=== PATIENT | male | born 1965 | race Caucasian/White ===

== ENCOUNTER 2019-02-23 22:32 | Inpatient (IN) | payer MEDICAID ==
[~2019-02-23] VITALS: Ht 182.9 cm; Wt 124.4 kg
[2019-02-23 22:39] VITALS: Ht 182.9 cm; Wt 124.4 kg
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
--- NOTE | 2019-02-23 22:51 | NUR ---
PER MEDIC BG 153.
[2019-02-23 23:36] LABS: BASOPHIL % 0.7 % (0-2)
[2019-02-23 23:46] LABS: CALCIUM 8.2 mg/dL (8.5-10.1); CARBON DIOXIDE 21.5 mmol/L (21-32); CHLORIDE SERUM 97 mmol/L (98-107); CREATININE SERUM 0.8 mg/dL (0.7-1.3); GFR1 > 60 mL/min; GLUCOSE SERUM 140 mg/dL (74-106); SODIUM SERUM 135 mmol/L (136-145)
[2019-02-23 23:51] LABS: ALKALINE PHOSPHATASE 194 U/L (46-116); ALT/SGPT 77 U/L (16-63); AST/SGOT 283 U/L (15-37); BILIRUBIN TOTAL 3.3 mg/dL (0.20-1.00); CHOLESTEROL 182 mg/dL (<200); CHOLESTEROL/HDL RATIO 3.5; HDL CHOLESTEROL 52 mg/dL (40-60); LIPASE 242 IU/L (73-393); TOTAL PROTEIN, SERUM 7.1 g/dL (6.4-8.2); TRIGLYCERIDES 167 mg/dL (<150)
[2019-02-23 23:52] LABS: PLATELET COUNT 89 x10^3mcL (130-400); RED CELL DISTRIBUTION WIDTH 16.2 % (11.5-14.5)
[2019-02-23 23:58] LABS: FREE T4 1.06 ng/dL (0.76-1.46); FREE THYROXINE INDEX 2.4 ug/dL (1.4-4.5); T3 TOTAL 1.02 ng/mL; T4(THYROXINE) 6.6 ug/dL (4.7-13.3)
--- NOTE | 2019-02-24 00:05 | NUR ---
PT GIVEN 1 NITRO FOR CHEST PRESSURE. PT STS THAT HE IS STILL FEELING ANXIIOUS. DR. FONSECA INFORMED. VSS. RESP E/U. WILL CONTINUE TO MONITOR.
--- NOTE | 2019-02-24 00:44 | NUR ---
PER DR DAVIDSON, ADMINISTER 3RD DOSE OF NITROGLYCERIN SL. PT ON FULL CM, AOX4, RESP EVEN AND UNLABORED, NO ACUTE DISTRESS NOTED.
[2019-02-24 01:32] LABS: MAGNESIUM 1.5 mg/dL (1.8-2.4)
--- NOTE | 2019-02-24 01:36 | NUR ---
REPORT GIVEN TO ADOLPH TO ASSUME CARE OF PT.
[2019-02-24] MEDS ORDERED: AMLODIPINE BES2.5 M1 PO (01:39)
[2019-02-24] MEDS ORDERED: PRAZOSIN HYDROCH1 MG PO (01:39)
[2019-02-24] MEDS ORDERED: GABAPENTIN100 M2 PO (01:39)
[2019-02-24] MEDS ORDERED: FLUOXETINE40 MG PO (01:39)
[2019-02-24] MEDS ORDERED: LITHIUM CARBON300 MG PO (01:39)
--- NOTE | 2019-02-24 02:10 | NUR ---
PT ARRIVED ON THE FLOOR FROM ER VIA [facility] ACCOMPANIED BY NURSE. PT IS ADMITTED W/ C/O CHEST PAIN. HE IS ALERT,ORIENTED X4 W/ CLEAR SPEECH. PT STATED HE HAS CHEST PAIN AT 7/10 BUT NON-RADIATING AT THIS TIME. LUNGS CTA. NO SOB ON ROOM AIR AND SATTING 96%. BOWEL SOUNDS ACTIVE. NO C/O ABDL DISCOMFORT AT THIS TIME. PT DENIES DYSURIA. W/ HL TO RT AND LT HANDS. PT ORIENTED TO ROOM AND INSTRUCTTED ON THE USE OF CALL LIGHT.
--- NOTE | 2019-02-24 02:30 | NUR ---
IV TO RT HAND REMOVED (NOT PATENT).
--- NOTE | 2019-02-24 02:34 | NUR ---
PT MEDICATED W/ MORPHINE SULFATE 2 MG IV FOR C/O CHEST PAIN AND W/ ATIVAN 1 MG PO FOR ANXIETY.
[2019-02-24 02:56] VITALS: BP 114/75
[2019-02-24 04:06] LABS: UA SPECIFIC GRAVITY <=1.005 (1.005-1.035); microscopic required? YES; urine erythrocyte NEGATIVE (NEGATIVE)
[2019-02-24 04:12] LABS: AMPHETAMINE QUAL UR NONE DETECTED (See below)
--- NOTE | 2019-02-24 05:18 | NUR ---
PT C/O CHEST PAIN 04/28. NORCO 5/325 MG PO GIVEN.
[2019-02-24 05:45] VITALS: BP 103/63
--- NOTE | 2019-02-24 06:31 | NUR ---
U/S ABDOMEN IN PROGRESS.
--- NOTE | 2019-02-24 06:31 | NUR ---
PT SLEPT FAIRLY. HE WAS MEDICATED FOR C/O CHEST PAIN X2 AND FOR ANXIETY X1. NO RESP. DISTRESS NOTED. HL TO LT HAND INTACT AND PATENT. ALL NEEDS ATTENDED TO.
--- NOTE | 2019-02-24 06:48 | NUR ---
INFORMED DR. MAGUIRE REGARDING MG LEVEL OF 1.5 AND RESULT OF URINALYSIS.
--- NOTE | 2019-02-24 07:15 | NUR ---
PT IS AAOXR. TELE [address] READING NSR. PT DENIES CHEST PAIN AND PRESSURE. LUNG SOUNDS CTA, ON R/A. NO COUGH OR SOB NOTED. ABDOMEN SOFT, ROUND, NONTENDER, NONDISTENDED. BOWEL SOUNDS ACTIVE. SKIN CDI. NO EDEMA NOTED. PERIPHERAL PULSES PALPABLE. IV CATH TO N/S LOCKED, SITE WNL. CALL LIGHT WITHIN REACH. BED IN LOWEST POSTION.
--- NOTE | 2019-02-24 07:20 | NUR ---
U/S OF ABDOMEN IN PROGRESS AT THIS TIME.
--- NOTE | 2019-02-24 07:41 | NUR ---
PT HR TRENDING AT 133-140 BMP SINCE 729. REPORTED TO DR. MAGUIRE. STATED LOPRESSOR WILL BE GIVEN. NO NEW ORDERS AT THIS TIME. PT STATES HE FEELS HIS HR IS UP. PT ENCOURAGED TO LAY FLAT AND DECREASE ACTIVITY. CALL LIGHT WITHIN REACH.
--- NOTE | 2019-02-24 08:16 | NUR ---
ROUTINE LOPRESSOR 12.5 MG PO GIVEN FOR HR 130BPM. VS: B/P 115/71 (81), HR PRESENTLY 101BPM. PT STATES HE IS FEELING ANXIOUS, ATIVAN WILL BE GIVEN. PT EDUCATED TO REPORT CHEST PAIN. NO S/S OF CHEST PAIN AT THIS TIME.
--- NOTE | 2019-02-24 08:37 | NUR ---
ATIVAN 1 MG PO GIVEN FOR ANXIETY. PT TAUGHT TO REPORT PAIN WHEN IT OCCURS. PT VERBALIZED UNDERSTANDING. CALL LIGHT WITHIN REACH.
[2019-02-24 09:49] VITALS: BP 116/72
--- NOTE | 2019-02-24 11:50 | NUR ---
PT IS IN BED WATCHING TV. RESP EVEN AND UNLABORED. PT FEELS LESS ANXIOUS AND DENIES PAIN AT THIS TIME. NO DISTRESS NOTED. CALL LIGHT WITHIN REACH.
--- NOTE | 2019-02-24 12:46 | NUR ---
PT IS SLEEPING BUT EASILY AROUSABLE. RESP EVEN AND UNLABORED. NO DISTRESS NOTED. CALL LIGHT WITHIN REACH.
[2019-02-24 13:15] VITALS: BP 106/61
[2019-02-24 14:38] LABS: CALCIUM 7.7 mg/dL (8.5-10.1); CARBON DIOXIDE 23.5 mmol/L (21-32); CHLORIDE SERUM 100 mmol/L (98-107); CREATININE SERUM 0.7 mg/dL (0.7-1.3); GFR1 > 60 mL/min; GLUCOSE SERUM 92 mg/dL (74-106); POTASSIUM SERUM 3.1 mmol/L (3.5-5.1); SODIUM SERUM 136 mmol/L (136-145)
--- NOTE | 2019-02-24 16:34 | NUR ---
REPORTED TO DR. MAGUIRE PT'S K+ LEVEL = 3.1. RECEIVED ORDER FOR KLOR CON 40MEQ PO X1 NOW. ORDER NOTED AND CARRIED OUT. PT MADE AWARE OF NEW ORDER.
--- NOTE | 2019-02-24 17:17 | NUR ---
KLORCON 40MEQ PO GIVEN OF K+ OF 3.1. RESP EVEN AND UNLABORED. NO SOB OR CHEST PAIN. DENIES DISCOMFORT AT THIS TIME. PT STATES, "I AM FEELING LESS ANXIOUS." CALL LIGHT WITHIN REACH.
[2019-02-24 17:48] VITALS: BP 109/62
--- NOTE | 2019-02-24 18:37 | NUR ---
PT IS AAOX4. RESP EVEN AND UNLABORED. DENIES CHEST PAIN AND PRESSURE. TELE [address] READING NSR. IV CATH NS LOCKED TO , SITE WNL. RECEIVED ORDER FROM DR. BERMEO TO D/C RFS AND NM REST TEST FOR 1030. REORDER TESTS FOR 14OO ON 02/25/19. BED IN LOW POSITION. CALL LIGHT WITHIN REACH. WILL ENDORSE ALL CARE TO NOC RN.
--- NOTE | 2019-02-24 19:10 | NUR ---
RECEIVED REPORT FROM AUGIE ESCOBAR. UPDATES PROVIDED. ALL QUESTIONS ANSWERED AND ADDRESSED. WILL RESUME CARE.
--- NOTE | 2019-02-24 19:12 | NUR ---
RECEIVED PT RESTING BUT AROUSABLE. ALERT AND ORIENTED X4. RESPONDS TO VERBAL, TACTILE, AND PAINFUL STIMULUS. PUPILS 3MM IN SIZE AND BRISK IN RESPONSE BILATERALLY. DENIES HEADACHE. ON ROOM AIR. BREATHING IS EVEN AND UNLABORED. CLEAR LUNG SOUNDS AUSCULTATED ALL THROUGHOUT LOBES. NO SIGNS OF RESP DISTRESS NOTED. STRONG PULSES TO BUE AND BLE. CAP REFILL <3 SEC TO BUE AND BLE. SKIN IS WARM/DRY, COLOR IS CONSISTENT WITH ETHNICITY. TRACE EDEMA TO BLE NOTED. S1/S2 HEART SOUNDS AUDIBLE. DENIES CP AT THIS TIME. SKIN INTACT. ECCHYMOSIS NOTED TO ABDOMEN. NO OPEN WOUNDS NOTED. ABD IS SOFT AND ROUNDED. ACTIVE BOWEL SOUNDS AUSCULTATED TO ALL 4 ABD QUAD. DENIES N/V AND ABD PAIN. X3 SIDE RAILS UP, CALL LIGHT WITHIN REACH, SCD TO BLE, BED IN LOWEST POSITION.
[2019-02-24 20:58] VITALS: BP 109/64
--- NOTE | 2019-02-25 04:10 | NUR ---
PT STATING THAT HE IS NAUSEOUS AND IS REQUESTING FOR MED TO RELIEVE THE SYMPTOMS. MEDICATED PT PER EMAR. WILL CONTINUE TO MONITOR.
[2019-02-25 05:33] VITALS: BP 128/80
[2019-02-25 06:33] LABS: BASOPHIL % 0.7 % (0-2)
[2019-02-25 06:38] LABS: ALKALINE PHOSPHATASE 186 U/L (46-116); ALT/SGPT 66 U/L (16-63); AST/SGOT 234 U/L (15-37); BILIRUBIN TOTAL 4.3 mg/dL (0.20-1.00); CALCIUM 8.5 mg/dL (8.5-10.1); CARBON DIOXIDE 24.7 mmol/L (21-32); CHLORIDE SERUM 100 mmol/L (98-107); CREATININE SERUM 0.6 mg/dL (0.7-1.3); GFR1 > 60 mL/min; GLUCOSE SERUM 120 mg/dL (74-106); POTASSIUM SERUM 3.5 mmol/L (3.5-5.1); SODIUM SERUM 137 mmol/L (136-145); TOTAL PROTEIN, SERUM 6.8 g/dL (6.4-8.2)
--- NOTE | 2019-02-25 06:39 | NUR ---
PT IS AWAKE AND ALERT. STATED WAS ABLE TO SLEEP FOR 3 HOURS. DENIES PAIN. DENIES N/V. BREATHING E/U. NO SIGNS OF RESP DISTRESS NOTED. X3 SIDE RAILS UP, BED IN LOWEST POSITION, CALL LIGHT WITHIN REACH.
[2019-02-25 06:45] LABS: ALBUMIN 2.8 g/dL (3.4-5.0)
[2019-02-25 06:56] LABS: PLATELET COUNT 64 x10^3mcL (130-400); RED CELL DISTRIBUTION WIDTH 15.7 % (11.5-14.5)
--- NOTE | 2019-02-25 07:08 | NUR ---
RECEIVED PATIENT AWAKE/ALERT UP AT SIDE OF BED, DENIES PAIN. RE-INFORCED PATIENT IS OKAY TO HAVE LIGHT BREAKFAST NO CAFFEINE PATIENT VERBALIZE UNDERSTAND. TELE #15 NOTED. IV TO LH INTACT AND SL NOTED. CALL LIGHT IN REACH.
--- NOTE | 2019-02-25 08:34 | NUR ---
PATIENT RESTING IN BED NO C/O CHEST PAIN. ADMINISTERED COLACE AND ASA; HELD METOPROLOL PER DOCTOR ORDERED, PATIENT SCHEDULE STRESS TEST AT 1400. INFORM PATIENT NOT TO EAT AND DRINK UNTIL TEST COMPLETE. PATIENT VERBALIZE UNDERSTAND. NEEDS MET. CALL LIGHT IN REACH.
[2019-02-25 09:50] VITALS: BP 107/57
--- NOTE | 2019-02-25 10:27 | NUR ---
CALL FOR MAGNESIUM LEVEL; LAST LEVEL ON 02/23/19 1.5L WILL BASE ON NEW LEVEL TO REPLACE. PER DR. MAGUIRE IS OKAY TO ADD TO LAB THIS MORNING.
--- NOTE | 2019-02-25 11:04 | NUR ---
PATIENT RESTING IN BED NO COMPLAIN, INFORM PATIENT MG LEVEL 1.2 WILL INFUSE MAGNSIUM SULFATE 2GM PER DRValdemar ORDER; IV TO LH FLUSH WELL, NO LEAKING NOTED, SITE SLIGHT ERYTHEMA BUT PATIENT STATED NO HURTING AND REPORT FROM LAYING ON IT. INFORM PATIENT IF START TO HURT NOTIFIED NURSE. CALL LIGHT IN REACH.
--- NOTE | 2019-02-25 12:13 | NUR ---
PATIENT REPORT IV LEAKING, ASSESS AND REMOVED TO IV W/ CATHETER INTACT, GAUZES APPLIED TO SITE. ICE PACK FOR SWELLING. RESTART NEW IV W/ STERILE TECHNIQUE TO #22G WITH GOOD BLOOD RETURN, SECURED. CONT MG-RIDER ORDERED. CALL LIGHT IN REACH.
[2019-02-25 12:53] VITALS: BP 105/70
--- NOTE | 2019-02-25 13:34 | NUR ---
IV HEPLOCK AND PATENT, NO ERYTHEMA NOTED. PATIENT OFF FLOOR VIA WHEELCHAIR FOR STRESS TEST. NOTIFIED NURSE ORTHOPEDIC LIGIA.
--- NOTE | 2019-02-25 15:20 | NUR ---
PATIENT BACK FROM STRESS TEST, IN BED NO COMPLAIN. TELE #[address] CALL LIGHT IN REACH.
--- NOTE | 2019-02-25 16:22 | NUR ---
PATIENT RESTING IN BED C/O ANXIETY AND REQUEST FOR MEDICATION. ATIVAN 1MG PO ADMINISTERED. NEEDS MET. UPDATE STRESS TEST RESULT PENDING. CALL LIGHT IN REACH.
[2019-02-25 17:22] VITALS: BP 107/65
--- NOTE | 2019-02-25 18:27 | NUR ---
PATIENT RESTING IN BED CALM, NO COMPLAIN. NEEDS MET. CALL LIGHT IN REACH.
[2019-02-25 19:15] VITALS: BP 115/72
--- NOTE | 2019-02-25 19:15 | NUR ---
RECEIVED PT ASLEEP BUT EASILY AROUSABLE.DENIES CHESTPAIN AT THIS TIME.BP 115/72 MMHG,HR 113.REPORS OF EPISODES OF ANXIETY.CALM AT THIS TIME.WILL CONTINUE TO MONITOR.
--- NOTE | 2019-02-25 20:05 | NUR ---
CALLED DR. BERMEO AND RELAYED STRESS TEST RESULT FOLLOWS.A SMALL REVERSIBLE PERFUSION DEFECT IS IDENTIFIED IN THE INFERIOR WALL OF LEFT VENTRICLE CONSISTENT WITH REVERSIBLE ISCHEMIA.EF 63%.PT OK FOR DISCHARGE AND HAS TO FOLLOW UP WITH PMD AND TO INFORM DR. MAGUIRE.
--- NOTE | 2019-02-25 21:00 | NUR ---
CALLED DR. MAGUIRE AND MADE AWARE OF DR. SABA ORDER OK FOR PT TO DISCHARGE.DR. MAGUIRE ORDERED FOR DISCHARGE TONIGHT.CONTINUE HOME MEDS AND FOLLOW UP WITH PMD FOR OUTPATIENT ANGIOGRAM.PT MADE AWARE.
--- NOTE | 2019-02-25 21:25 | NUR ---
PT DISCHARGE WITH ALL BELONGINGS SENT WITH PT.D/C IV AND MONITOR.INSTRUCTIONS GIVEN TO FOLLOW UP WITH PMD FOR OUTPT ANGIOGRAM.BROUGHT DOWN WITH NURSE.PT IN NO DISTRESS.
== END 2019-02-25 21:25 | disposition home or self-care (01) | DRG 145 ==
LOC: ED 22:32 → DU 02-24 00:48
PROVIDERS: Internal Medicine Cardiovascular Disease; Specialist; ADMIT Internal Medicine
DX: R09.1 Pleurisy (principal); I24.9 Acute ischemic heart disease, unspecified; I11.9 Hypertensive heart disease without heart failure; K76.0 Fatty (change of) liver, not elsewhere classified; E66.9 Obesity, unspecified; E87.6 Hypokalemia; I25.10 Atherosclerotic heart disease of native coronary artery without angina pectoris; F31.9 Bipolar disorder, unspecified; F41.9 Anxiety disorder, unspecified; E78.5 Hyperlipidemia, unspecified; Z68.35 Body mass index [BMI] 35.0-35.9, adult; Z82.49 Family history of ischemic heart disease and other diseases of the circulatory system
CPT/HCPCS: 83880; 84439; A9500; J2060; J2270; J2550; J2785; J3475; J7030; Q0092

== ENCOUNTER 2019-03-17 08:26 | Inpatient (IN) | payer MEDICAID ==
[~2019-03-17] VITALS: Ht 182.9 cm; Wt 136.1 kg
[~2019-03-17 08:26] MED LIST: AMLODIPINE BES2.5 M1 PO; FLUOXETINE40 MG PO; GABAPENTIN100 M2 PO; LITHIUM CARBON300 MG PO; PRAZOSIN HYDROCH1 MG PO
[2019-03-17 08:32] VITALS: Ht 182.9 cm; Wt 136.1 kg
[2019-03-17 08:58] LABS: PLATELET COUNT 343 x10^3mcL (130-400)
[2019-03-17 09:22] LABS: CALCIUM 7.8 mg/dL (8.5-10.1); CARBON DIOXIDE 22.8 mmol/L (21-32); CHLORIDE SERUM 109 mmol/L (98-107); CREATININE SERUM 0.7 mg/dL (0.7-1.3); GFR1 > 60 mL/min; GLUCOSE SERUM 132 mg/dL (74-106); POTASSIUM SERUM 3.8 mmol/L (3.5-5.1); SODIUM SERUM 147 mmol/L (136-145)
[2019-03-17 09:23] LABS: RED CELL DISTRIBUTION WIDTH 16.3 % (11.5-14.5)
[2019-03-17 09:27] LABS: ALKALINE PHOSPHATASE 256 U/L (46-116); ALT/SGPT 112 U/L (16-63); AST/SGOT 373 U/L (15-37); TOTAL PROTEIN, SERUM 7.2 g/dL (6.4-8.2)
[2019-03-17 09:32] LABS: ALBUMIN 2.3 g/dL (3.4-5.0)
[2019-03-17] MEDS ORDERED: PROZAC40 MG (10:08)
[2019-03-17] MEDS ORDERED: GABAPENTIN100 M2 (10:08)
[2019-03-17] MEDS ORDERED: LITHIUM CARBON300 MG (10:09)
[2019-03-17 14:34] LABS: MAGNESIUM 1.8 mg/dL (1.8-2.4)
[2019-03-17 14:35] LABS: CHOLESTEROL/HDL RATIO 8.4
[2019-03-17 14:50] VITALS: BP 123/74
[2019-03-17 18:08] VITALS: BP 115/70
[2019-03-17 20:22] VITALS: BP 118/77
[2019-03-17 22:04] LABS: microscopic required? YES; urine erythrocyte NEGATIVE (NEGATIVE)
[2019-03-17 22:14] LABS: AMPHETAMINE QUAL UR NONE DETECTED (See below)
[2019-03-18 05:23] VITALS: BP 129/73
[2019-03-18 06:26] LABS: BASOPHIL % 0.7 % (0-2); PLATELET COUNT 209 x10^3mcL (130-400)
[2019-03-18 06:31] LABS: CALCIUM 7.6 mg/dL (8.5-10.1); CARBON DIOXIDE 23.3 mmol/L (21-32); CHLORIDE SERUM 103 mmol/L (98-107); CREATININE SERUM 0.6 mg/dL (0.7-1.3); GFR1 > 60 mL/min; GLUCOSE SERUM 96 mg/dL (74-106); POTASSIUM SERUM 3.5 mmol/L (3.5-5.1); SODIUM SERUM 133 mmol/L (136-145)
[2019-03-18 06:42] LABS: RED CELL DISTRIBUTION WIDTH 15.6 % (11.5-14.5)
[2019-03-18 09:19] VITALS: BP 115/74
[2019-03-18 13:00] VITALS: BP 137/77
[2019-03-18 15:51] VITALS: BP 137/77
== END 2019-03-18 16:19 | disposition home or self-care (01) | DRG 198 ==
LOC: ED 08:26 → DU 12:31
PROVIDERS: ADMIT Internal Medicine
DX: I25.119 Atherosclerotic heart disease of native coronary artery with unspecified angina pectoris (principal); I24.9 Acute ischemic heart disease, unspecified; Z68.41 Body mass index [BMI] 40.0-44.9, adult; I11.9 Hypertensive heart disease without heart failure; F31.9 Bipolar disorder, unspecified; D72.829 Elevated white blood cell count, unspecified; R74.0 Nonspecific elevation of levels of transaminase and lactic acid dehydrogenase [LDH]; E66.9 Obesity, unspecified; Z79.82 Long term (current) use of aspirin
CPT/HCPCS: 83880; J2550